=== PATIENT | male | born 1965 | race Caucasian/White ===

== ENCOUNTER 2017-01-09 13:37 | Emergency (ER) | payer OTHER, SELFPAY ==
[~2017-01-09] VITALS: Ht 193 cm; Wt 105.7 kg
[2017-01-09] MEDS ORDERED: KLONOPIN0.5 MG ORAL (13:53)
[2017-01-09] MEDS ORDERED: LEXAPRO10 MG ORAL (13:53)
[2017-01-09] MEDS ORDERED: DIOVAN80 MG ORAL (13:56)
[2017-01-09 14:20] VITALS: BP 122/79
[2017-01-09] MEDS ORDERED: Methocarbamol 750mg tab ORAL ONE (14:30)
[2017-01-09] MEDS ORDERED: Ketorolac 60mg Inj IM ONE (14:30)
[2017-01-09 15:08] LABS: APPEARANCE,URINE CLEAR; KETONES,URINE 3+ (NEGATIVE); LEUKOCYTE ESTERASE ,URINE 1+ (NEGATIVE); NITRITE,URINE NEGATIVE (NEGATIVE); PH,URINE 6 (4.5-8.0); PROTEIN,URINE 2+ (NEGATIVE); UROBILINOGEN,URINE 12 MG/DL (0.0-1.0)
[2017-01-09 15:31] LABS: RBC,URINE 0-2 /HPF (0 - 0); WBC,URINE 0-2 /HPF (0 - 0)
[2017-01-09 15:32] LABS: BACTERIA,URINE OCCASIONAL /HPF; MUCUS,URINE MANY /LPF (NONE/OCC)
[2017-01-09 15:34] LABS: ICTOTEST NEGATIVE
[2017-01-09] MEDS ORDERED: IBUPROFEN600 MG ORAL (16:03)
[2017-01-09] MEDS ORDERED: ROBAXIN-750750 MG PO (16:03)
[2017-01-09 16:30] VITALS: BP 122/79
--- NOTE | 2017-01-09 21:14 | Emergency Room Report ---
History of Present Illness General Chief Complaint: Back Pain-No Injury Source: Patient Present Illness HPI The patient is a 51-year-old male presenting for back pain. Pain is described as a 9 out of 10 dull ache to the left lower back and does not radiate. Worse with movement. He denies any known injury to the area. He states that she has had this pain any times in the past. He denies any other symptoms including N, V, F, chills, dysuria, hematuria, diarrhea, constipation Allergies: Coded Allergies: SULFADIAZINE (Verified Allergy, Intermediate, 01/09/17) Patient History Past Medical History: see triage record Pertinent Family History: none Reviewed Nursing Documentation: PMH: Agreed, PSxH: Agreed Nursing Documentation-PMH Hx Hypertension: Yes History Of Psychiatric Problem: Yes - anxiety Review of Systems All Other Systems: negative except mentioned in HPI Physical Exam Vital Signs Date Time Temp Pulse Resp B/P (MAP) Pulse Ox O2 Delivery O2 Flow Rate FiO2 01/09/17 13:38 98.1 78 16 140/90 98 Room Air Sp02 EP Interpretation: reviewed, normal General Appearance: no apparent distress, alert, GCS 15, non-toxic Head: normocephalic, atraumatic ENT: hearing grossly normal, normal pharynx, no angioedema, normal voice Neck: full range of motion, supple/symm/no masses Respiratory: chest non-tender, lungs clear, normal breath sounds, speaking full sentences Cardiovascular #1: regular rate, rhythm, no edema Gastrointestinal: normal bowel sounds, non tender, soft, non-distended, no guarding, no rebound Genitourinary: normal inspection, no CVA tenderness Musculoskeletal: normal range of motion, tender - TTP over soft touch to L lower back Neurologic: alert, oriented x3, responsive, motor strength/tone normal, sensory intact, normal gait, speech normal Psychiatric: judgement/insight normal, memory normal, mood/affect normal, no suicidal/homicidal ideation Skin: normal color, no rash, warm/dry, well hydrated Medical Decision Making PA Attestation Dr. Kendrick is my supervising physician. Patient management was discussed with my supervising physician Diagnostic Impression: Primary Impression: Muscle strain ER Course The patient is a 51-year-old male presenting for back pain. Ddx considered include but not limited to lumbar strain, degenerative disease, pyelonephritis, kidney stone, among others Physical exam: Afebrile. No apparent distress There is tenderness with soft palpation over the left lumbar paraspinal muscles. No midline tenderness. No CVA tenderness Abdomen is soft and nontender Urinalysis unremarkable Urine drug screen positive for benzos and amphetamines. The patient is given Toradol and Robaxin with good relief of pain. He'll be discharged with Motrin and Robaxin. ER precautions are given Laboratory Tests Test 01/09/17 15:00 Urine Color Dalia Urine Appearance Clear Urine pH 6 (4.5-8.0) Urine Specific Leslie 1.025 (1.005-1.035) Urine Protein 2+ (NEGATIVE) H Urine Glucose (UA) Negative (NEGATIVE) Urine Ketones 3+ (NEGATIVE) H Urine Occult Blood 1+ (NEGATIVE) H Urine Nitrite Negative (NEGATIVE) Urine Bilirubin 2+ (NEGATIVE) H Urine Ictotest Negative Urine Urobilinogen 12 MG/DL (0.0-1.0) H Urine Leukocyte Esterase 1+ (NEGATIVE) H Urine RBC 0-2 /HPF (0 - 0) H Urine WBC 0-2 /HPF (0 - 0) Urine Squamous Epithelial Cells None /LPF (NONE/OCC) Urine Bacteria Occasional /HPF (NONE) Urine Mucus Many /LPF (NONE/OCC) H Urine Opiates Screen Negative (NEGATIVE) Urine Barbiturates Screen Negative (NEGATIVE) Phencyclidine (PCP) Screen Negative (NEGATIVE) Urine Amphetamines Screen Positive (NEGATIVE) H Urine Benzodiazepines Screen Positive (NEGATIVE) H Urine Cocaine Screen Negative (NEGATIVE) Urine Marijuana (THC) Screen Negative (NEGATIVE) Lab Results Impression UA shows no infection. UDS + for benzo and amphetamine Last Vital Signs Date Time Temp Pulse Resp B/P (MAP) Pulse Ox O2 Delivery O2 Flow Rate FiO2 01/09/17 16:30 98.1 84 16 122/79 98 Room Air Status: improved Disposition: HOME, SELF-CARE Condition: Improved Scripts Methocarbamol* (ROBAXIN-750*) 750 Mg Tablet 750 MG PO TID, #21 TAB 0 Refills Prov: TERZIAN,AMOR P.A. 01/09/17 Ibuprofen* (MOTRIN*) 600 Mg Tablet 600 MG ORAL Q8H Y for For Pain, #30 TAB 0 Refills Prov: TERZIAN,AMOR P.A. 01/09/17 Patient Instructions: Back Pain, Adult Additional Instructions: I discussed my findings with the patient. All questions and concerns have been answered. Treatment and medication compliance have been addressed. I advised the patient that they need to follow up with PMD in 3-5 days. Return to ED if symptoms worsen, new symptoms arise, or if needed for any reason. Patient verbalized understanding of discharge instructions. AMOR MI Jan 09, 2017 21:14
== END 2017-01-09 16:30 | disposition home or self-care (01) ==
LOC: EDBD 13:37 → EMR 14:10
DX: M54.5 Low back pain (principal); T14.8 Other injury of unspecified body region; X58.XXXA Exposure to other specified factors, initial encounter; Y93.9 Activity, unspecified; Y92.9 Unspecified place or not applicable; Z88.2 Allergy status to sulfonamides; I10 Essential (primary) hypertension; F41.9 Anxiety disorder, unspecified
CPT/HCPCS: 80300; 81003; 96372; 99284